=== PATIENT | female | born 1955 | race Caucasian/White ===

== ENCOUNTER 2019-12-14 13:44 | Emergency (ER) | payer OTHER, SELFPAY ==
[2019-12-14 13:58] VITALS: BP 134/75; PULSE 68; RESP 16; TEMP 36.6; O2SAT 97
--- NOTE | 2019-12-14 14:13 | ED.SKABFB ---
HPI - Skin/Abscess/Foreign Bdy General Chief complaint: Skin/Abscess/Foreign Body Stated complaint: pos shingles Time Seen by Provider: 12/14/19 14:06 Source: patient and RN notes reviewed Mode of arrival: ambulatory Limitations: no limitations History of Present Illness HPI narrative: Patient presents today complaining of a severely painful rash to her right forearm x7 to 10 days. Reports 1 patch started at the inner right wrist and over the last 3 days she has developed 3 other clusters in her forearm. They are very painful to touch. She currently rates her pain 7/10 and states the pain is extending all the way up her arm to her shoulder. She has been taking ibuprofen with some relief. She has not had a shingles vaccine. MD complaint: rash Related Data Home Medications Medication Instructions Recorded Confirmed fenofibrate 160 mg PO DAILY 12/14/19 12/14/19 lisinopril [Zestril] 40 mg PO DAILY 12/14/19 12/14/19 simvastatin [Zocor] 20 mg PO DAILY 12/14/19 12/14/19 Allergies Allergy/AdvReac Type Severity Reaction Status Date / Time Sulfa (Sulfonamide Allergy Unknown Hives Verified 12/14/19 14:05 Antibiotics) DARVOCET Allergy Unknown Unknown Uncoded 12/14/19 14:05 Review of Systems Review of Systems: Narrative: CONSTITUTIONAL: Denies body aches, fever, chills, or sweats. EYES: Denies visual changes, redness, or discharge. ENT: Denies rhinorrhea, congestion, sore throat, or otalgia. CARDIOVASCULAR: Denies chest pain, palpitations, or edema. RESPIRATORY: Denies cough or dyspnea. GASTROINTESTINAL: Denies abdominal pain, nausea, vomiting, or diarrhea. GENITOURINARY: Denies dysuria or hematuria. SKIN: Denies itching, or wounds.+ Rash to right forearm MUSCULOSKELETAL: Denies back pain, joint pain, or myalgia. NEUROLOGIC: Denies headache, numbness, tingling, or weakness. PSYCH: Denies depression or anxiety. [facility] Social History Social History Smoking status: Heavy tobacco smoker Alcohol intake: never Gender identity (if verbalized by the patient): Female Comments At time of signature, I have reviewed and agree with nursing past medical, surgical, social and family history unless otherwise noted. Please see nursing chart for further information. There is no relevant family history pertinent to the presenting complaint Exam Narrative: Exam Narrative: GENERAL: Well-appearing, well-nourished, and in no acute distress. HEAD: Normocephalic, atraumatic. EYES: EOMI. No redness or drainage. Conjunctivae normal. ENT: Mucous membranes pink and moist. NECK: Normal AROM. CHEST: No respiratory distress. EXTREMITIES: Normal range of motion. No edema. SKIN: Warm, dry. Capillary refill normal. Normal skin turgor. 4 clusters of erythematous vesicles to right forearm. Tender to touch. No signs of infection to include: no induration or fluctuance. NEURO: No focal deficits. Alert and oriented x3. Gait steady. PSYCH: Normal affect. No signs of depression or anxiety. Course Vital Signs Vital signs: Vital Signs Temperature 97.9 F 12/14/19 13:58 Pulse Rate 68 12/14/19 13:58 Respiratory Rate 16 12/14/19 13:58 Blood Pressure 134/75 12/14/19 13:58 Pulse Oximetry 97 12/14/19 13:58 Temperature 97.9 F 12/14/19 13:58 Pulse Rate 68 12/14/19 13:58 Respiratory Rate 16 12/14/19 13:58 Blood Pressure 134/75 12/14/19 13:58 Pulse Oximetry 97 12/14/19 13:58 Reviewed. Pt has been instructed to follow up with her PCP regarding her elevated blood pressure today. MDM - Skin/Abscess/Foreign Bdy Differential Diagnosis Differential diagnosis: Likely abscess of skin or subcutaneous tissue, viral exanthem, urticaria, herpes zoster, allergic reaction to drug, cellulitis, eczema, insect bites, impetigo and contact dermatitis Critical Care Time Critical Care Time Critical Care Time: No Discharge Plan Discharge Clinical Impression: Herpes zoster Qualifiers: Herpes zoster complications: wit
== END 2019-12-14 14:17 | disposition home or self-care (01) ==
PROVIDERS: Emergency Provider Nurse Practitioner; PCP Emergency Medicine
DX: B02.9 Zoster without complications (principal); F17.200 Nicotine dependence, unspecified, uncomplicated; I10 Essential (primary) hypertension
CPT/HCPCS: 99213; G0463

== ENCOUNTER 2020-02-04 10:16 | Outpatient (CLI) | payer OTHER, SELFPAY ==
--- NOTE | ~2020-02-04 | MM_ITS ---
EXAMINATION: MM screening ross BI w randal HISTORY: Screening mammogram TECHNIQUE: Craniocaudal and mediolateral oblique 3-D tomosynthesis images were obtained and synthetic 2-D images were generated. CAD analysis was submitted and interpreted. COMPARISON: Comparison to multiple prior studies sequentially, with oldest reviewed study dated 10/2011. BREAST PARENCHYMAL COMPOSITION: The breasts are heterogeneously dense, which may obscure small masses . FINDINGS: There is no evidence of suspicious mass, calcification, or architectural distortion to sugg est malignancy in either breast. There has been no suspicious interval change. IMPRESSION: 1. No mammographic evidence of malignancy. 2. Recommend routine screening mammography in one year. BI-RADS Category 1: Negative Reviewed, dictated and finalized at location A.
== END 2020-02-04 10:17 | disposition home or self-care (01) ==
PROVIDERS: PCP Emergency Medicine; Visit Provider Emergency Medicine
DX: Z12.31 Encounter for screening mammogram for malignant neoplasm of breast (principal)
CPT/HCPCS: 77063; 77067

== ENCOUNTER → 2021-07-08 10:36 | Outpatient (CLI) | payer BC, SELFPAY ==
--- NOTE | ~2021-07-08 | CT_ITS ---
EXAMINATION: CT abdomen pelvis w con EXAM DATE: 07/08/2021 11:27 INDICATION: R10.33 - Periumbilical pain. TECHNIQUE: Spiral CT of the abdomen and pelvis was performed following intravenous injection of 100 m L Omnipaque 350. Axial, coronal and sagittal images of the abdomen and pelvis were reviewed. The do se-length product (DLP) for this examination was 398.22 mGy-cm. The exposure was tailored according to patient size (auto mA exposure control), and iterative reconstruction (ASIR) was used as additiona l dose reduction technique. There is no prior study for comparison. FINDINGS: Lobular splenic fluid density measuring 1.6 cm, likely benign finding. There are scattered splenic granulomata. There is a left adrenal gland 1 cm lesion likely adenoma. There is hepatic steat osis without suspicious focal lesion identified. Pancreas unremarkable. Gallbladder is unremarkable. No biliary obstruction. Portal and splenic veins are patent. Small renal cysts. Kidneys enhance symmetrically. There is no h ydronephrosis. The uterus and ovaries are unremarkable, no adnexal mass. The bladder is unremarkab le. There is no retroperitoneal or pelvic lymphadenopathy. There is mild scattered arterioscleroti c disease. Mildly dilated mid abdominal aorta up to 2.2 cm. There are no findings to suggest appendicitis. The stomach and small bowel are unremarkable. There is expected amount of colonic stool. No free intraperitoneal gas. The heart is normal in size. T here are no pericardial or pleural effusions. The lung bases are unremarkable. There are no osteobl astic or osteolytic lesions identified. IMPRESSION: 1. No acute intra-abdominal findings. Unremarkable periumbilical region. 2. Splenic, left adrenal lesions likely benign. 3. Hepatic steatosis. 4. Mild aortic arterial sclerosis, ectasia. Reviewed, dictated and finalized at location A. RONMENTAL SCIENCE TECHNICIAN
[2021-07-08 11:13] LABS: Estimated Glomerular Filt Rate 49
== END ==
PROVIDERS: PCP Emergency Medicine; Visit Provider Emergency Medicine
DX: R10.33 Periumbilical pain (principal); K76.0 Fatty (change of) liver, not elsewhere classified; I70.0 Atherosclerosis of aorta
CPT/HCPCS: 74177; Q9967

== ENCOUNTER 2021-07-08 14:42 | Outpatient (CLI) | payer BC, SELFPAY ==
--- NOTE | ~2021-07-08 | MM_ITS ---
EXAMINATION: MM screening ross BI w randal HISTORY: Screening mammogram TECHNIQUE: Craniocaudal and mediolateral oblique 3-D tomosynthesis images were obtained and synthetic 2-D images were generated. CAD analysis was submitted and interpreted. COMPARISON: 02/04/2020, 10/26/2018, 03/28/2017 bilateral screening mammogram examinations BREAST PARENCHYMAL COMPOSITION: The breasts are heterogeneously dense, which may obscure small masses . FINDINGS: There is no evidence of suspicious mass, calcification, or architectural distortion to sugg est malignancy in either breast. There has been no suspicious interval change. IMPRESSION: 1. No mammographic evidence of malignancy. 2. Recommend routine screening mammography in one year. BI-RADS Category 1: Negative Reviewed, dictated and finalized at location A. NG ROOM CASHIER
== END 2021-07-08 14:43 | disposition home or self-care (01) ==
LOC: ANHIMG 14:44
PROVIDERS: PCP Emergency Medicine; Visit Provider Emergency Medicine
DX: Z12.31 Encounter for screening mammogram for malignant neoplasm of breast (principal)
CPT/HCPCS: 77063; 77067

== ENCOUNTER → 2022-12-15 12:03 | Outpatient (CLI) | payer OTHER, SELFPAY ==
--- NOTE | ~2022-12-15 | XR_ITS ---
XR lumbar spine 2-3V 12/15/2022 12:36 Indication: Back pain Procedure: 3 views lumbar spine Comparison: No prior studies Findings: Vertebral body heights are maintained. There is loss of disc height at all levels. No fract ure, subluxation or dislocation. No evidence for spondylolisthesis. There is facet hypertrophy at L4- 5 and L5-S1 there is atherosclerosis. There is mild dextroscoliosis. Impression: 1: Moderate lumbar spondylosis. Reviewed, dictated and finalized at location B. Impression: 1: Moderate lumbar spondylosis.
--- NOTE | ~2022-12-15 | XR_ITS ---
Thoracic spine: Clinical Indication: Back pain AP and lateral views were performed. No fracture is seen. There is normal alignment of the vertebrae. The intervertebral disc spaces appe ar normal. Paravertebral soft tissues appear normal. Impression: No significant abnormalities noted. Reviewed, dictated and finalized at [facility]. Impression: No significant abnormalities noted.
== END ==
PROVIDERS: PCP Emergency Medicine; Visit Provider Emergency Medicine
DX: M47.896 Other spondylosis, lumbar region (principal)
CPT/HCPCS: 72070; 72100

== ENCOUNTER → 2023-06-18 15:39 | Outpatient (CLI) | payer OTHER, SELFPAY ==
--- NOTE | ~2023-06-18 | XR_ITS ---
EXAMINATION: XR chest 2V DATE: 06/18/2023 16:02 INDICATION: Cough. TECHNIQUE: Frontal and lateral views of the chest were obtained. COMPARISON: CT abdomen and pelvis 07/08/2021 FINDINGS: Calcified pulmonary nodules and calcified hilar and mediastinal lymph nodes are consistent with old granulomatous disease. There is no pneumonia, pleural effusion, or pneumothorax. The heart s ize is normal. IMPRESSION: 1. No acute cardiopulmonary disease. Reviewed, dictated and finalized at location E. MACHINE OPERATOR
--- NOTE | ~2023-06-18 | CT_ITS ---
EXAMINATION: CT sinus wo con DATE: 06/18/2023 16:12 INDICATION: Nasal congestion. TECHNIQUE: Computed tomography (CT) of the paranasal sinuses was performed without intravenous contra st. Iterative reconstruction technique was employed. The dose-length product was 277.35 mGy-cm. COMPARISON: None FINDINGS: There is mild mucosal thickening in left frontal recess and the bilateral ethmoid sinuses. The sphenoid sinuses are clear. There is mild mucosal thickening in right maxillary sinus. Left maxil chan sinus is clear. There is a Kevin cell on the left. The ostiomeatal units are patent. There is r ightward deviation of superior nasal septum and leftward deviation of inferior nasal septum. There is a right mastoid effusion. IMPRESSION: 1. Mild mucosal thickening in the paranasal sinuses. 2. Rightward deviation of superior nasal septum and leftward deviation of inferior nasal septum. Reviewed, dictated and finalized at location E. ING GENERAL SUPERINTENDENT IMPRESSION: 1. Mild mucosal thickening in the paranasal sinuses. 2. Rightward deviation of superior nasal septum and leftward deviation of infer ior nasal septum.
== END ==
PROVIDERS: PCP Emergency Medicine; Visit Provider Emergency Medicine
DX: R09.81 Nasal congestion (principal); R09.89 Other specified symptoms and signs involving the circulatory and respiratory systems; J34.2 Deviated nasal septum
CPT/HCPCS: 70486; 71046

== ENCOUNTER 2023-06-19 13:49 | Outpatient (CLI) | payer OTHER, SELFPAY ==
--- NOTE | 2023-06-19 14:01 | ECG_ITS ---
Measurements Intervals [place] Rate: 73 P: 56 PA: 152 QRS: 79 QRSD: 86 T: 37 QT: 365 QTc: 405 Interpretive Statements SINUS RHYTHM DELAYED PRECORDIAL R/S TRANSITION BORDERLINE T WAVE ABNORMALITY- ANTERIOR LEADS BASELINE WANDER- II, III BORDERLINE ECG NO PREVIOUS ECG AVAILABLE FOR COMPARISON Electronically Signed On 06-19-2023 15:06:35 LIEUTENANT FIREFIGHTER by Jordy Interiano D.O.
== END 2023-06-19 13:50 | disposition home or self-care (01) ==
LOC: ANHLAB 13:51
PROVIDERS: PCP Emergency Medicine; Visit Provider Emergency Medicine
DX: R00.2 Palpitations (principal); R94.31 Abnormal electrocardiogram [ECG] [EKG]
CPT/HCPCS: 93005

== ENCOUNTER 2024-01-23 08:25 | Outpatient (CLI) | payer OTHER, SELFPAY ==
--- NOTE | 2024-01-23 08:32 | ECG_ITS ---
Test Date: 2024-01-23 08:42:22 Measurements Intervals [place] Rate: 57 P: 68 CO: 187 QRS: 87 QRSD: 101 T: 52 QT: 407 QTc: 398 Interpretive Statements SINUS BRADYCARDIA nonspecific st t wave abnormalities No previous ECG available for comparison Electronically Signed On 01-23-2024 15:44:37 CDT by Bismark Soto M.D.
== END 2024-01-23 08:26 | disposition home or self-care (01) ==
LOC: ANHCARD 08:27
PROVIDERS: PCP Emergency Medicine; Visit Provider Emergency Medicine
DX: R00.2 Palpitations (principal)
CPT/HCPCS: 93005

== ENCOUNTER 2024-02-05 08:37 | Outpatient (CLI) | payer OTHER, SELFPAY ==
--- NOTE | 2024-02-05 08:45 | ECHO_ITS ---
Patient Info Name: Dipti Jacques Age: 68 years : 1955 Gender: Female Ht: 60 in Wt: 130 lbs BSA: 1.59 m2 HR: 69 bpm BP: 148 / 98 mmHg Technical Quality: Good Exam Date: 02/05/2024 9:01 AM Exam Location: Echo Lab Patient Status: Outpatient Admit Date: 02/05/2024 Staff Ordering Physician: Paulino Farnsworth MD Sole Stainer: Damian Milton RDCS Attending Provider: Paulino Farnsworth MD Referring Physician: Daja LÓPEZ; Exam Type: CA echo doppler color flow Study Info Indications R00.2 - Palpitations Complete two-dimensional, color flow and Doppler transthoracic echocardiogram is performed. Summary 1. Complete two-dimensional, color flow and Doppler transthoracic echocardiogram is performed. 2. Left ventricular chamber dimension is normal. 3. Left ventricular systolic function is normal, estimated at 60-65%. 4. The left ventricular diastolic function is grade I diastolic dysfunction. 5. E/e' 15 is elevated. 6. No pulmonary hypertension, estimated pulmonary arterial systolic pressure is 14 mmHg. Left Ventricle E/e' 15 is elevated. Left ventricular chamber dimension is normal. Left ventricular systolic function is normal, estimated at 60-65%. The left ventricular diastolic function is grade I diastolic dysfunction. Right Ventricle Right ventricular systolic function is normal and with normal TAPSE 2.2 cm. Right ventricular chamber dimension is normal. Left Atria Left atrial chamber dimension is normal. Right Atria Right atrial chamber dimension is normal. Aortic Valve The aortic valve is trileaflet. There is no aortic valve stenosis. There is no aortic valve regurgitation. Pulmonic Valve There is no pulmonic regurgitation. Mitral Valve There is no mitral valve stenosis. There is no mitral valve regurgitation. Tricuspid Valve There is no tricuspid valve regurgitation. No pulmonary hypertension, estimated pulmonary arterial systolic pressure is 14 mmHg. Pericardium/Pleural There is no pericardial effusion. Inferior Vena Cava Normal inferior vena cava with >50% collapse upon inspiration consistent with normal right atrial pressure, 5 mmHg. Aorta The aortic root size at the sinus of Valsalva is normal. Left Ventricular Outflow Tract Name Value Normal LVOT 2D LVOT Diameter 1.8 cm LVOT Doppler LVOT Peak Gradient 6 mmHg LVOT Mean Gradient 3 mmHg LVOT VTI 26 cm LVOT VTI/AV VTI Ratio 0.8 LVOT Stroke Volume 68 ml LVOT CO 3.9 l/min LVOT CI 2.4 l/min/m2 Pulmonic Valve Name Value Normal PV Doppler PV Peak Gradient 4 mmHg Mitral Valve Name Value Normal
== END 2024-02-05 08:38 | disposition home or self-care (01) ==
LOC: ANHCARD 08:37
PROVIDERS: PCP Emergency Medicine; Visit Provider Emergency Medicine
DX: R00.2 Palpitations (principal); R42 Dizziness and giddiness
CPT/HCPCS: 93306